=== PATIENT | female | born 1945 | race African-American/Black ===

== ENCOUNTER → 2020-08-16 | Outpatient (CLI) | payer MEDICARE ==
--- NOTE | 2020-08-17 13:59 | CARD ---
MR#: [id number] Date of Study: 08/16/2020 Ordering Physician: MIRANDA GARCIA, Referring Physician: MIRANDA GARCIA, Tech: Rachel Isidro [facility] APPROVED REPORT EXAM: Two-dimensional and M-mode echocardiogram with Doppler and color Doppler. Other Information Quality : Technically LimitedHR: 79bpm Rhythm : Atrial Fibrillation INDICATION Dyspnea Hypertension/HCVD RISK FACTORS Hypertension Obesity Hyperlipidemia Diabetes 2D DIMENSIONS Left Atrium(2D)4.4 (1.6-4.0cm)IVSd1.4 (0.7-1.1cm) Aortic Root(2D)3.0 (2.0-3.7cm)LVDd4.2 (3.9-5.9cm) LVOT Diameter2.1 (1.8-2.4cm)PWd1.2 (0.7-1.1cm) LVDs2.2 (2.5-4.0cm)FS (%) 47.2 % SV60.4 mlLVEF(%)79.0 (>50%) Pulmonary Valve PV Peak Aaupqhtl28.9cm/s Tricuspid Valve TR P. Foncnxsn109eh/sTR Peak Gr.20mmHg LEFT VENTRICLE The left ventricle is normal size. There is borderline to mild concentric left ventricular hypertroph y. The left ventricular systolic function is normal and the ejection fraction is within normal range. Estimated ejection fraction 55-60%. There is grossly normal LV segmental wall motion. Technically ve ry limited images RIGHT VENTRICLE The right ventricle is normal size. There is normal right ventricular wall thickness. The right ventr icular systolic function is normal. ATRIA The left atrium is mildly dilated. The right atrium is mildly dilated. AORTIC VALVE The aortic valve is normal in structure and function. MITRAL VALVE The mitral valve is normal in structure and function. TRICUSPID VALVE The tricuspid valve is normal in structure and function. Doppler and Color Flow revealed trace to mil d tricuspid regurgitation. Estimated PAP 25-30 mmHg. There is no tricuspid valve stenosis. PULMONIC VALVE Doppler and Color Flow revealed moderate pulmonary valvular regurgitation. GREAT VESSELS The aortic root is normal in size. PERICARDIAL EFFUSION There is no evidence of significant pericardial effusion. Critical Notification Critical Value: No <Conclusion> The left ventricular systolic function is normal and the ejection fraction is within normal range. E stimated ejection fraction 55-60%. There is grossly normal LV segmental wall motion. Technically very limited images Doppler and Color Flow revealed moderate pulmonary valvular regurgitation. Techincally difficult study. Limited echo only. Signed by : Thomas Yarbrough, Electronically Approved : 08/17/2020 13:58:59
== END ==
LOC: ECHO 13:18
PROVIDERS: ATTEND Internal Medicine Cardiovascular Disease
DX: I08.8 Other rheumatic multiple valve diseases (principal); I11.9 Hypertensive heart disease without heart failure
CPT/HCPCS: 93306